=== PATIENT | male | born 1955 | race Caucasian/White ===

== ENCOUNTER 2018-08-07 15:19 | Outpatient (CLI) | payer OTHER ==
--- NOTE | 2018-08-07 16:17 | RAD ---
PA AND LATERAL CHEST: 08/07/18 HISTORY: Cough and bronchitis. COMPARISON: None. Heart size and mediastinum are within normal limits. Lungs are clear of any confluent infiltrative pr ocess. IMPRESSION: No active intrathoracic disease. POS: [facility]
== END 2018-08-07 15:20 | disposition home or self-care (01) ==
LOC: SCSRAD 15:19
PROVIDERS: ATTEND Nurse Practitioner Family
DX: J40 Bronchitis, not specified as acute or chronic (principal)
CPT/HCPCS: 71046